=== PATIENT | female | born 1980 | race Hispanic/Latino ===

== ENCOUNTER 2023-09-19 06:57 | Emergency (ER) | payer SELFPAY ==
[2023-09-19 08:25] LABS: Absolute Lymphocytes (CBC) 2.4 K/uL (0.7-4.9); Hematocrit 29.7 % (36.0-45.0); MCV 59.4 fL (80-100); MPV 8.8 fL (7.6-11.3); Platelets 416 thou/uL (152-406)
[2023-09-19 08:29] LABS: Specific Gravity 1.025 (1.005-1.030); Urine Bilirubin Negative (Negative); Urine Blood Negative (Negative); Urine Clarity Clear (Clear); Urine Color Yellow (Yellow); Urine Glucose Negative (Negative); Urine Protein 1+ (Negative); Urine Urobilinogen 0.2 mg/dL (0.2-1.0)
[2023-09-19] MEDS ORDERED: ONDANSETRON 4 MG/2 ML VIAL ONE ×2 (08:38→10:42)
[2023-09-19] MEDS ORDERED: FAMOTIDINE 20 MG/2 ML VIAL IV ONE (08:38)
--- NOTE | 2023-09-19 09:01 | RAD REPORT ---
EXAM DESCRIPTION: US - Abdomen Exam Limited - 09/19/2023 8:07 am CLINICAL HISTORY: ABD PAIN COMPARISON: ABDOMINAL EXAM LIMITED dated 01/24/2010 TECHNIQUE: Sonographic grayscale and color flow images of the right upper abdominal quadrant were o btained. FINDINGS: The gallbladder was surgically removed. No abnormal collections or fluid in the gallbladde r fossa. The common bile duct is normal measuring 2 mm. The liver demonstrates no findings of intrahepatic biliary dilatation. IMPRESSION: Status post cholecystectomy. No intra or extrahepatic biliary ductal dilation.
[2023-09-19 09:24] LABS: Anisocytosis 1+; Blood Morphology Comment NOTED (NOT SEEN); Hypochromasia 2+; Platelet Estimate ADEQ; Polychromasia SLIGHT; White Blood Cell Scan OK (OK)
[2023-09-19 09:25] LABS: Basophilic Stippling 1+
[2023-09-19 09:37] LABS: Albumin 3.2 g/dL (3.4-5.0); Bilirubin Total 0.3 mg/dL (0.2-1.0); Protein, Total 8.5 g/dL (6.4-8.2)
--- NOTE | 2023-09-19 10:40 | RAD REPORT ---
EXAM DESCRIPTION: CT - Abdomen Pelvis W Contrast - 09/19/2023 10:09 am CLINICAL HISTORY: ABD PAIN COMPARISON: No comparisons TECHNIQUE: Thin cut axial CT imaging of the abdomen and pelvis was performed following intravenous a dministration of 100 mL Isovue 300. Multiplanar reformats were generated and reviewed. All CT scans are performed using dose optimization technique as appropriate and may include automated exposure control or mA/KV adjustment according to patient size. FINDINGS: No suspicious findings in the lung bases. The liver, spleen, adrenal glands, and pancreas show no suspicious findings. Gallbladder was surgical ly removed. Symmetric renal function is seen with no hydronephrosis or suspicious renal mass. No dilated bowel loops or bowel wall thickening. Appendix is unremarkable. No free air, free fluid or inflammatory stranding. No hernia, mass or bulky lymphadenopathy. The urinary bladder is without sig nificant finding. No suspicious bony findings. IMPRESSION: No acute intra-abdominal process.
[2023-09-19 10:45] LABS: Specific Gravity 1.025 (1.005-1.030)
--- NOTE | 2023-09-19 12:20 | EDPHYS ---
Physician Documentation [facility] Name: Mary Morataya Age: 43 yrs Sex: Female : 1980 Arrival Date: 09/19/2023 Time: 06:57 Bed 3 Private MD: ED Physician Amilcar Selby HPI: 09/19 08:59 This 43 yrs old Female presents to ER via Ambulatory with complaints of ms3 Abdominal Pain. 08:59 43-year-old female with past medical history of hypertension presents emergency [facility] department for epigastric pain that she rates a 9/10 and states began last night. Patient noted she developed diarrhea and vomiting on Monday night. Patient endorses chills, denies fever. Patient states she did have dark stool yesterday and denies hematemesis.. Historical: - Allergies: 07:46 No Known Allergies; iw - Home Meds: 07:46 losartan oral [Active]; iw - PMHx: 07:46 Hypertensive disorder; iw - PSHx: 07:46 tummy tuck; hand; breast augmentation; iw - Immunization history:: Adult Immunizations. - Social history:: Smoking status: Patient denies any tobacco usage or history of. ROS: 08:59 Constitutional: Negative for fever, and chills. Neck: Negative for injury, pain, and ms3 swelling, Cardiovascular: Negative for chest pain, and palpitations. Respiratory: Negative for shortness of breath, cough, wheezing, and pleuritic chest pain, 08:59 MS/Extremity: Negative for injury and deformity, Skin: Negative for injury, rash, and discoloration, 08:59 Abdomen/GI: Positive for abdominal pain, vomiting, diarrhea, 08:59 All other systems are negative, Exam: 08:59 Constitutional: This is a well developed, well nourished patient who is awake, alert, ms3 and in no acute distress. Head/Face: Normocephalic, atraumatic. Chest/axilla: Normal chest wall appearance and motion. Nontender with no deformity. Cardiovascular: Regular rate and rhythm with a normal S1 and S2. No gallops, murmurs, or rubs. Normal PMI, no JVD. No pulse deficits. Respiratory: Lungs have equal breath sounds bilaterally, clear to auscultation and percussion. No rales, rhonchi or wheezes noted. No increased work of breathing, no retractions or nasal flaring. 08:59 Abdomen/GI: Inspection: abdomen appears normal, Bowel sounds: normal, Palpation: moderate abdominal tenderness, in the right upper quadrant, Vital Signs: 07:45 BP 136 / 73; Pulse 83; Resp 16; Temp 98.1; Pulse Ox 95% ; Pain 9/10; iw 08:39 BP 131 / 85; Pulse 68; Resp 16; Pulse Ox 100% on R/A; db 09:00 BP 117 / 78; Pulse 66; Resp 16; Pulse Ox 100% on R/A; db 09:30 BP 128 / 81; Pulse 72; Resp 16; Pulse Ox 100% on R/A; db 10:20 BP 129 / 85; Pulse 66; Resp 16; Pulse Ox 100% ; db 10:47 BP 137 / 77; Pulse 65; Resp 16 S; Pulse Ox 100% on R/A; kc6 12:08 BP 130 / 82; Pulse 69; Resp 16; Pulse Ox 100% on R/A; db 07:45 Pain Scale: Adult iw MDM: 07:43 Patient medically screened. ms3 08:59 Differential diagnosis: cholecystitis, Cholelithiasis, non-specific abd pain, ms3 pancreatitis. 12:36 Data reviewed: vital signs, nurses notes, lab test result(s), radiologic studies, and ms3 as a result, I will discharge patient. I considered the following discharge prescriptions or medication management in the emergency department Medications were administered in the Emergency Department. See MAR. Care significantly affected by the following chronic conditions: Hypertension. Counseling: I had a detailed discussion with the patient and/or guardian regarding the historical points, exam findings, and any diagnostic results supporting the discharge/admit diagnosis, lab results, radiology results, the need for outpatient follow up, to return to the emergency department if symptoms worsen or persist or if there are any questions or concerns that arise at home. Response to treatment: the patient's symptoms have markedly improved after treatment, and as a result, I will discharge patient. Special discussion: Based on the patient's Hx, exam, and Dx evaluation, there is no indication for emergent surgery or inpatient Tx. It is understood by the patient/guardian that if the Sx's persist or worsen they need to return immediately for re-evaluation. ED course: Discussed labs, imaging with patient. Patient symptoms have improved, patient alert and orient x4, no apparent distress, nontoxic-appearing. Patient to follow-up with GI in 2 to 3 days. Patient understands and agrees with plan. All questions were answered. Return precautions discussed include worsening symptoms, or any other concerns. 09/19 07:43 Order name: CBC with Diff; Complete Time: 10:28 ms3 09/19 07:43 Order name: CMP; Complete Time: 10: ms3 09/19 07:43 Order name: Lipase; Complete Time: 10: ms3 09/19 08:29 Order name: Urinalysis w/ reflexes EDMS 09/19 09:24 Order name: Test, Urine; Complete Time: 12:19 ms3 09/19 09:25 Order name: CBC Smear Scan; Complete Time: 10: EDMS 09/19 07:43 Order name: US Abdomen Limited; Complete Time: 09:04 ms3 09/19 09:05 Order name: CT Abd/Pelvis - IV Contrast Only; Complete Time: 10:43 ms3 09/19 07:43 Order name: IV Saline Lock; Complete Time: 08:19 ms3 09/19 07:43 Order name: Labs collected and sent; Complete Time: 08:19 ms3 Administered Medications: 08:40 Drug: Famotidine IVP 20 mg IVP once; dilute with 10 mL 0.9% NaCl; give over 2 minutes db Route: IVP; Site: right antecubital; 12:57 Follow up: Response: No adverse reaction db 08:40 Drug: Ondansetron IVP 4 mg IVP once; over 2 minutes Route: IVP; Site: right antecubital;db 12:57 Follow up: Response: No adverse reaction db 10:33 Drug: Ondansetron IVP 4 mg IVP once; over 2 minutes Route: IVP; Site: right antecubital;db 12:56 Follow up: Response: No adverse reaction db Disposition Summary: 09/19/23 12:19 Discharge Ordered Notes: Location: Home ms3 Condition: Stable ms3 Diagnosis - Upper abdominal pain, unspecified ms3 - Anemia, unspecified ms3 Followup: ms3 - With: Mao Thibodeaux MD - When: 2 - 3 days - Reason: Recheck today's complaints Discharge Instructions: - Abdominal Pain, Adult ms3 - Discharge Summary Sheet db Forms: - Medication Reconciliation Form ms3 - Thank You Letter ms3 - Antibiotic Education ms3 - Prescription Opioid Use ms3 - Patient Portal Instructions ms3 - Leadership Thank You Letter ms3 - Work release form db Prescriptions: - ondansetron 4 mg Oral Tablet,disintegrating - take 1 tablet ORAL route every 8 hours; 15 tablet; Refills: 0, Product ms3 Selection Permitted - Pepcid 20 mg Oral Tablet - take 1 tablet ORAL route every 12 hours for 5 days; 10 tablet; Refills: 0, ms3 Product Selection Permitted Signatures: Dispatcher [employer] EDMS Adrianne Valverde, RN RN iw Amilcar Selby DO DO ms3 Whitley Palacio, RN RN db Corrections: (The following items were deleted from the chart) 07:47 07:46 Home Meds: None; iw 07:47 07:46 PMHx: None; [facility] 08:32 08:05 Urinalysis+U.LAB.BRZ ordered. EDMD EDMS
--- NOTE | 2023-09-19 12:20 | ER ---
Nurse's Notes [facility] Name: Mary Morataya Age: 43 yrs Sex: Female : 1980 Arrival Date: 09/19/2023 Time: 06:57 Bed 3 Private MD: Diagnosis: Upper abdominal pain, unspecified;Anemia, unspecified Presentation: 09/19 07:45 Chief complaint: Patient states: upper abd pain radiating to right back , also has iw vomiting and diarrhea since Monday night. Coronavirus screen: At this time, the client does not indicate any symptoms associated with coronavirus-19. Ebola Screen: Patient negative for fever greater than or equal to 101.5 degrees Fahrenheit, and additional compatible Ebola Virus Disease symptoms Patient denies exposure to infectious person. Patient denies travel to an Ebola-affected area in the 21 days before illness onset. No symptoms or risks identified at this time. Initial Sepsis Screen: Does the patient meet any 2 criteria? No. Patient's initial sepsis screen is negative. Does the patient have a suspected source of infection? No. Patient's initial sepsis screen is negative. Risk Assessment: Do you want to hurt yourself or someone else? Patient reports no desire to harm self or others. Onset of symptoms was September 17, 2023. 07:45 Method Of Arrival: Ambulatory iw 07:45 Acuity: MAURO 3 iw Historical: - Allergies: 07:46 No Known Allergies; iw - Home Meds: 07:46 losartan oral [Active]; iw - PMHx: 07:46 Hypertensive disorder; iw - PSHx: 07:46 tummy tuck; hand; breast augmentation; iw - Immunization history:: Adult Immunizations. - Social history:: Smoking status: Patient denies any tobacco usage or history of. Screenin:24 [facility] ED Fall Risk Assessment (Adult) History of falling in the last 3 months, db including since admission No falls in past 3 months (0 pts) Confusion or Disorientation No (0 pts) Score/Fall Risk Level 0 - 2 = Low Risk Oriented to surroundings, Maintained a safe environment. Abuse screen: Denies threats or abuse. Denies injuries from another. Nutritional screening: No deficits noted. Tuberculosis screening: No symptoms or risk factors identified. Assessment: 08:48 Reassessment: Patient appears in no apparent distress at this time. Patient and/or db family updated on plan of care and expected duration. Pain level reassessed. Patient is alert, oriented x 3, equal unlabored respirations, skin warm/dry/pink. Patient states feeling better. Patient states symptoms have improved. General: Appears in no apparent distress. comfortable, Behavior is calm, cooperative. Pain: Complains of pain in abdomen. Neuro: Level of Consciousness is awake, alert, obeys commands, Oriented to person, place, time, situation. Respiratory: Airway is patent Respiratory effort is even, unlabored, Respiratory pattern is regular, symmetrical. GI: Bowel sounds present X 4 quads. Abd is soft Abdomen is tender to palpation in epigastric area Reports upper abdominal pain. 09:48 Reassessment: Patient appears in no apparent distress at this time. No changes from kc6 previously documented assessment. Patient and/or family updated on plan of care and expected duration. Pain level reassessed. Patient is alert, oriented x 3, equal unlabored respirations, skin warm/dry/pink. 10:24 Reassessment: Patient appears in no apparent distress at this time. PT RETURNED TO ROOM db FROM CT. REQUESTS NAUSEA MEDICATION. NOTIFIED DR. BUCK. 10:47 Reassessment: Patient appears in no apparent distress at this time. No changes from kc6 previously documented assessment. Patient and/or family updated on plan of care and expected duration. Pain level reassessed. Patient is alert, oriented x 3, equal unlabored respirations, skin warm/dry/pink. 12:08 Reassessment: Patient appears in no apparent distress at this time. Patient and/or db family updated on plan of care and expected duration. Pain level reassessed. Patient is alert, oriented x 3, equal unlabored respirations, skin warm/dry/pink. Patient states feeling better. Patient states symptoms have improved. Vital Signs: 07:45 BP 136 / 73; Pulse 83; Resp 16; Temp 98.1; Pulse Ox 95% ; Pain 9/10; iw 08:39 BP 131 / 85; Pulse 68; Resp 16; Pulse Ox 100% on R/A; db 09:00 BP 117 / 78; Pulse 66; Resp 16; Pulse Ox 100% on R/A; db 09:30 BP 128 / 81; Pulse 72; Resp 16; Pulse Ox 100% on R/A; db 10:20 BP 129 / 85; Pulse 66; Resp 16; Pulse Ox 100% ; db 10:47 BP 137 / 77; Pulse 65; Resp 16 S; Pulse Ox 100% on R/A; kc6 12:08 BP 130 / 82; Pulse 69; Resp 16; Pulse Ox 100% on R/A; db 07:45 Pain Scale: Adult iw ED Course: 06:58 Patient arrived in ED. rg4 07:07 Amilcar Buck DO is Attending Physician. ms3 07:46 Triage completed. iw 07:47 Arm band placed on. iw 08:08 US Abdomen Limited In Process Unspecified. EDMS 08:21 Whitley Palacio, RN is Primary Nurse. db 09:45 Inserted saline lock: 20 gauge in right antecubital area, using aseptic technique. db 10:10 CT Abd/Pelvis - IV Contrast Only In Process Unspecified. EDMS 10:47 Patient has correct armband on for positive identification. Bed in low position. Call kc6 light in reach. Side rails up X 1. Adult w/ patient. Client placed on continuous cardiac and pulse oximetry monitoring. NIBP monitoring applied. 12:19 Mao Thibodeaux MD is Referral Physician. ms3 12:55 Provided Education on: DISCHARGE. db 12:55 No provider procedures requiring assistance completed. IV discontinued, intact, db bleeding controlled, No redness/swelling at site. Administered Medications: 08:40 Drug: Famotidine IVP 20 mg IVP once; dilute with 10 mL 0.9% NaCl; give over 2 minutes db Route: IVP; Site: right antecubital; 12:57 Follow up: Response: No adverse reaction db 08:40 Drug: Ondansetron IVP 4 mg IVP once; over 2 minutes Route: IVP; Site: right antecubital;db 12:57 Follow up: Response: No adverse reaction db 10:33 Drug: Ondansetron IVP 4 mg IVP once; over 2 minutes Route: IVP; Site: right antecubital;db 12:56 Follow up: Response: No adverse reaction db Medication: 12:55 VIS not applicable for this client. db Outcome: 12:19 Discharge ordered by . ms3 12:55 Discharged to home ambulatory, db 12:55 Condition: stable 12:55 Discharge instructions given to patient, family, Instructed on discharge instructions, follow up and referral plans. Prescriptions given X 2, 12:57 Patient left the ED. db Signatures: Dispatcher [employer] Adrianne Almazan, RN RN iw Heather Morataya rg4 Amilcar Buck DO DO ms3 Karla Russ, NELLA RN kc6 Whitley Palacio RN RN db Corrections: (The following items were deleted from the chart) 07:47 07:46 Home Meds: None; [facility] 07:47 07:46 PMHx: None; [facility]
[2023-09-19 13:16] VITALS: TEMP 98.1
[2023-09-19 13:19] VITALS: O2SAT 100
[2023-09-19 13:28] VITALS: BP 130/82
== END 2023-09-19 12:57 | disposition home or self-care (01) ==
LOC: ER 06:57
DX: R10.13 Epigastric pain (principal); D64.9 Anemia, unspecified; I10 Essential (primary) hypertension; Z98.82 Breast implant status
CPT/HCPCS: 36415; 74177; 76705; 80053; 81003; 81025; 83690; 85025; 96374; 96375; 99284; J2405; Q9967